=== PATIENT | female | born 1980 | race Two or more races ===

== ENCOUNTER 2016-10-11 17:14 | Emergency (ER) | payer MEDICAID, OTHER ==
[2016-10-11 17:31] VITALS: BP 128/86; PULSE 83; RESP 18; TEMP 98.1; O2SAT 98
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
[2016-10-11] MEDS ORDERED: LORAZEPAM 1 MG PREPACK#4 BTL TAKEHOME ONE (17:54)
== END 2016-10-11 18:44 | disposition home or self-care (01) ==
DX: F41.9 Anxiety disorder, unspecified (principal)